=== PATIENT | male | born 1990 | race Caucasian/White ===

== ENCOUNTER → 2022-09-16 | Outpatient (CLI) | payer OTHER ==
--- NOTE | 2022-09-16 12:08 | US ---
EXAMINATION TYPE: US venous doppler duplex LE LT DATE OF EXAM: 09/16/2022 11:45 AM COMPARISON: NONE CLINICAL HISTORY: 32-year-old male I80.9 PHLEBITIS AND THROMBOPHLEBITIS. 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 FINDINGS: VESSELS IMAGED: Common Femoral Vein Deep Femoral Vein Greater Saphenous Vein * Femoral Vein Popliteal Vein Small Saphenous Vein * Proximal Calf Veins Peroneal veins Posterior tibial veins (* superficial vessels) Left Leg: Negative for DVT Social Services Designee notes:*8.2 x 2.7 x 4.5cm complex collection medial knee at area of pain. Very thickened i nternal material is present. IMPRESSION: 1. No sonographic evidence for DVT left lower extremity. 2. Moderate sized 8.2 x 4.5 cm very complex and thickened Higgins's cyst; suspect extensive internal de bris and possible synovitis. The planning associate indicates that this corresponds to the site of patient's pain.
== END | disposition home or self-care (01) ==
LOC: RADUSWWP 11:20
PROVIDERS: ATTEND Orthopaedic Surgery
DX: M71.22 Synovial cyst of popliteal space [Baker], left knee (principal); I80.3 Phlebitis and thrombophlebitis of lower extremities, unspecified

== ENCOUNTER → 2022-09-20 | Outpatient (CLI) | payer OTHER ==
--- NOTE | 2022-09-20 10:29 | MR ---
EXAMINATION TYPE: MR knee LT wo con DATE OF EXAM: 09/20/2022 COMPARISON: NONE HISTORY: Left knee pain, int derangement, hx of multiple surgeries. Chronic instability. History of A CL reconstruction surgery x2. TECHNIQUE: Multiplanar, multisequence images of the knee is performed without IV contrast. FINDINGS: MEDIAL MENISCUS: Truncated appearance to medial meniscus with oblique increased signal in the remnant anterior horn extends to superior surface coronal image 17. LATERAL MENISCUS: Anterior and posterior horns are intact without tear. CRUCIATE LIGAMENTS: The posterior cruciate ligament is intact. Anterior cruciate ligament is not seen consistent with complete recurrent tear. There is artifact from prior ACL surgery involving the cent ral proximal tibia. COLLATERAL LIGAMENTS: The medial collateral ligament and lateral collateral ligament complex are inta ct. Mild to moderate increased fluid signal surrounds the medial collateral ligament. EXTENSOR MECHANISM: Visualized quadriceps and patellar tendons are intact. EFFUSION: Moderate to large size suprapatellar joint effusion with areas of linear diminished T1 and T2 signal raising concern for synovitis.. POPLITEAL CYST: Large popliteal cyst with septation and areas of diminished signal suspect debris obed suring over 9.0 cm long axis sagittal image 28. TRICOMPARTMENT SPACES: Moderate narrowing and mild spurring patellofemoral compartment. There is ante rior shifting or positioning of the tibia relative to the distal femur. There is mild to moderate alverto rowing and moderate spurring medial tibiofemoral length lateral tibiofemoral compartments. CARTILAGE: Cartilaginous loss involving the distal medial femoral condyle mid to posterior aspects at site of prior meniscal surgery is noted. BONE MARROW SIGNAL: Artifact from prior surgical change in the distal femur lateral aspect is seen. T here were areas of diminished T1 and increased T2 signal distal medial femoral condyle at site of car tilaginous loss. OTHER: No additional significant abnormality is appreciated. IMPRESSION: 1. Evidence of prior ACL repair surgery with recurrent full-thickness retracted tear. Anterior positi oning of the tibia or instability is noted. 2. Evidence of prior partial meniscectomy with recurrent full-thickness tear through the remnant ante rior horn of the medial meniscus. 3. Large suprapatellar joint effusion with suggestion of underlying synovitis. 4. Large debris-filled and septated popliteal cyst. 5. Tricompartment degenerative changes greatest in appearance medial tibiofemoral compartment where t here is osteochondral involvement noted near site of prior meniscal surgery. 6. Mild to moderate MCL sprain injury.
== END | disposition home or self-care (01) ==
LOC: RADMRIMAIN 06:39
PROVIDERS: ATTEND Orthopaedic Surgery
DX: M23.92 Unspecified internal derangement of left knee (principal); M23.52 Chronic instability of knee, left knee; S83.412A Sprain of medial collateral ligament of left knee, initial encounter; M17.12 Unilateral primary osteoarthritis, left knee; M71.22 Synovial cyst of popliteal space [Baker], left knee; M25.462 Effusion, left knee